=== PATIENT | male | born 1940 | race Asian ===

== ENCOUNTER 2017-06-03 11:04 | Emergency (ER) | payer MEDICARE, MEDICAID ==
[~2017-06-03] VITALS: Ht 167.6 cm; Wt 74.8 kg
[~2017-06-03 11:04] MED LIST: ASPI-231 PO; ATOR20TA50 PO; CAR3125T PO; ENAL5TAB85 PO; FAMO-12 PO; FERR-20 PO; INSDRIP SC; LEVO25TA6 PO; LEVO500T21 PO; SACC250C PO
[2017-06-03 11:44] LABS: Basophils # (auto) 0 uL; Basophils % (auto) 0.5 % (0.0-2.0); Eosinophils # (auto) 0.1 uL; Eosinophils % (auto) 1.5 % (0.0-7.0); Hematocrit 39.3 % (41.0-53.0); Hemoglobin 12.9 g/dL (13.5-17.5); Lymphocytes # (auto) 2.6 uL; Lymphocytes % (auto) 31.2 % (10.0-50.0); Mean Corpuscular Hgb Conc. 32.9 g/dL (32.0-36.0); Mean Corpuscular Volume 88.1 fL (80.0-100.0); Mean Platelet Volume 6.3 fL (6.9-10.8); Monocytes # (auto) 0.5 uL; Monocytes % (auto) 6.1 % (0.0-12.0); Neutrophils % (auto) 60.7 % (37.0-80.0); Nucleated Red Blood Cells % 0.1 %; Platelet Count (auto) 398 10^3/uL (140-450); Red Cell Distribution Width 14.4 % (11.8-14.3); White Blood Cell 8.2 10^3/uL (4.4-10.8)
[2017-06-03 12:05] LABS: Albumin 3.1 g/dL (3.4-5.0); BUN/Creatinine Ratio 22.6; Bilirubin, Total 0.2 mg/dL (0.2-1.0); Calcium 9.4 mg/dL (8.5-10.1); Potassium 4.3 mmol/L (3.5-5.1); Total Protein 8.4 g/dL (6.4-8.2)
[2017-06-03 13:32] LABS: Urine Bilirubin Negative (Negative); Urine Blood 3+ /uL (Negative); Urine Color PINK (Yellow); Urine Glucose 3+ mg/dL (Normal); Urine Ketone Negative (Negative); Urine Nitrite POSITIVE (Negative); Urine RBC 887 /hpf (0 - 3); Urine Urobilinogen Normal (Negative); Urine WBC Clumps PRESENT /hpf (None Seen)
[2017-06-03] MEDS ORDERED: LIDOCAINE VISCOUS 2% 15ML UD ONE (13:35)
[2017-06-03 13:54] VITALS: BP 143/70
[2017-06-03] MEDS ORDERED: CIPROFLOXACIN HCL 500 MG TAB PO ONE (14:15)
== END 2017-06-03 12:11 | disposition home or self-care (01) ==
LOC: EDBD 11:04 → ER 11:04
DX: N39.0 Urinary tract infection, site not specified (principal); E11.9 Type 2 diabetes mellitus without complications; I10 Essential (primary) hypertension; Z95.1 Presence of aortocoronary bypass graft; Z86.73 Personal history of transient ischemic attack (TIA), and cerebral infarction without residual deficits; Z79.899 Other long term (current) drug therapy; Z79.4 Long term (current) use of insulin
CPT/HCPCS: 36415; 51702; 80053; 81001; 85025